=== PATIENT | female | born 1960 | race Caucasian/White ===

== ENCOUNTER 2019-07-02 08:25 | Emergency (ER) | payer OTHER ==
[~2019-07-02] VITALS: Ht 165.1 cm; Wt 78.0 kg
[2019-07-02 08:29] VITALS: BP 145/78
--- NOTE | 2019-07-02 08:43 | NUR ---
PATIENT IS HERE FOR MED REFILL ON [facility] AND HAS BEEN UNABLE TO GET REFILL DUE TO HER PRIMARY CARE DOCTOR LEAVING THE AREA. PATIENT HAS BEEN ON THIS MED FOR ALMOST 10 YEARS FOR DEPRESSION. LIST OF LOCAL PRIMARY CARE DOCTORS GIVEN TO ASSIST PATIENT IN QUEST TO OBTAIN NEW PRIMARY CARE PROVIDER.
[2019-07-02] MEDS ORDERED: DULO-31 PO (09:01)
== END 2019-07-02 09:15 | disposition home or self-care (01) ==
LOC: ER 08:28
DX: F32.9 Major depressive disorder, single episode, unspecified (principal); F41.9 Anxiety disorder, unspecified; Z76.0 Encounter for issue of repeat prescription
CPT/HCPCS: 99283

== ENCOUNTER 2025-07-26 07:34 | Emergency (ER) | payer MEDICARE, MEDICAID ==
[~2025-07-26] VITALS: Ht 165.1 cm; Wt 73.4 kg
[~2025-07-26 07:34] MED LIST: DULO-31 PO
[2025-07-26 08:28] LABS: LEUKOCYTE ESTERASE ,URINE NEGATIVE (Neg); NITRITES, URINE NEGATIVE (Neg); OCCULT BLOOD,URINE NEGATIVE (Neg)
[2025-07-26 08:29] LABS: UA COLLECTION TYPE CLN CATCH MIDSTREAM; URINE HCG NEGATIVE (NEG)
[2025-07-26 08:37] LABS: SQUAMOUS EPITHELIAL CELL,UR MANY /LPF (FEW)
[2025-07-26 08:38] LABS: HYALINE CASTS 0-3 /LPF (NEGATIVE)
[2025-07-26 08:45] VITALS: BP 157/85; PULSE 70; RESP 16; TEMP 98.1; O2SAT 98
[2025-07-26 08:46] LABS: MEAN PLATELET VOLUME 6.6 FL (7.4-10.4); RED CELL DISTRIBUTION WIDTH 13.4 % (11.5-14.5)
[2025-07-26 08:57] LABS: CREATININE 0.95 MG/DL (0.40-0.90); TOTAL CARBON DIOXIDE 25.7 MMOL/L (24-32); eCRCL 53 ML/MIN; eGFR 59 ML/MIN
[2025-07-26] MEDS ORDERED: TINI500T18 PO (10:59)
--- NOTE | 2025-07-26 10:59 | Physician Documentation ---
History of Present Illness ~ Chief Complaint: Diarrhea Stated Complaint: DIARRHEA Time Seen by MD: 07:48 Primary Medical Doctor: [facility] Isamar aquino Mode of Arrival: Ambulatory HPI 64 year old female reports 7 weeks of watery diarrhea with gas. She has passed very little solid stool and her appetite has been decreased during this time. She reports some occasional abdominal cramping but denies focal abdominal pain. Denies fevers, recent travel, new medications, antibiotic use, and exposure to other sick individuals. Medication Reconciliation Allergies: Coded Allergies: No Known Allergies (Unverified , 07/26/25) Scheduled Duloxetine Hcl* (Cymbalta*), 60 MG PO DAILY Past Medical History Smoking Status: Current every day smoker Review of Systems All Other Systems at this time: Reviewed and Negative Physical Exam Vital Signs: RN Vital Signs have been reviewed: Yes, Temperature: 98.1, Source: Oral, Heart Rate: 70, Respiratory Rate: 16, BP: 157/85, Pulse Oximetry: 98, Weight: 73.400 Oxygen Flow Rate: 0 Physical Exam Gen: no distress HEENT: PERRL, EOMI Pulm: no distress CV: deferred Abd: soft, nontender, nondistended MSK: no deformity Skin: w/d/i Psych: unremarkable Progress Results/Orders Results/Orders Orders - LUISANA ROGERS MD C Diff Toxin (07/26/25 08:48) Completed Orders - LUISANA ROGERS MD Hcg, Ur Ql (07/26/25 07:41) Cbc/Diff (07/26/25 07:41) BMP (07/26/25 07:41) Lipase (07/26/25 07:41) CMP (07/26/25 07:41) Ua W/Microscopic, Cult If Ind (07/26/25 07:45) Vital Signs 07/26/25 07/26/25 07/26/25 07:37 08:37 08:45 Temp 97.9 98.1 Pulse 112 70 Resp 16 18 16 B/P (MAP) 151/82 157/85 (109) Pulse Ox 99 98 O2 Flow Rate 0 0 Laboratory Tests Test 07/26/25 07:45 07/26/25 08:34 Urine Specimen Description Cln catch midstream Urine Color Yellow Urine Clarity Slightly cloudy Urine pH 6.0 Urine Specific [place] 1.015 Urine Protein Negative Urine Glucose (UA) Negative Urine Ketones Trace H Urine Occult Blood Negative Urine Nitrite Negative Urine Bilirubin Negative Urine Urobilinogen 0.2 Urine Leukocyte Esterase Negative Urine RBC None seen Urine WBC 0-4 Urine Squamous Epithelial Cells Many Urine Bacteria Few Urine Hyaline Casts 0-3 Urine Culture Indicated Not ind Volume Urine Centrifuged 10 ml Urine HCG, Qualitative Negative Urine Comment White Blood Count 8.3 Red Blood Count 3.79 L Hemoglobin 13.1 Hematocrit 38.0 Mean Corpuscular Volume 100.3 H Mean Corpuscular Hemoglobin 34.5 H Mean Corpuscular Hemoglobin Concent 34.4 Red Cell Distribution Width 13.4 Platelet Count 468 H Mean Platelet Volume 6.6 L Neutrophils (%) (Auto) 74.5 Lymphocytes (%) (Auto) 16.9 L Monocytes (%) (Auto) 5.2 Eosinophils (%) (Auto) 2.7 Basophils (%) (Auto) 0.7 Neutrophils # (Auto) 6.2 Lymphocytes # (Auto) 1.4 Monocytes # (Auto) 0.4 Eosinophils # (Auto) 0.2 Basophils # (Auto) 0.1 CBC Comment Sodium Level 133 L Potassium Level 4.6 Chloride Level 100 Carbon Dioxide Level 25.7 Anion Gap 7 L Blood Urea Nitrogen 8 Creatinine 0.95 H Estimated GFR/1.73 m2 59 BUN/Creatinine Ratio 8.4 L Glucose Level 133 H Calcium Level 8.8 Total Bilirubin 0.8 Aspartate Amino Transf (AST/SGOT) 32 Alanine Aminotransferase (ALT/SGPT) 29 Alkaline Phosphatase 69 Total Protein 7.4 Albumin 3.8 Globulin 3.6 Albumin/Globulin Ratio 1.1 Lipase 40 Chemistry Comments Medical Decision Making Additional information obtaine: N/A Diff Dx GI Bleed:Consideration: Include: Other Diff Dx Pain:Considerations: Include: Other Diff Dx N/V/D:Considerations: Include: Other Diff Dx Rectal:Considerations: Include: Other Additional Comments 64 year old female with subacute diarrhea. Exam and vitals benign, workup nega tive thus far although we are awaiting stool results for giardia and c. diff. Will discharge with empiric dose of tinidazole. Ddx = giardia, viral gastroenteritis, malabsorption, c. diff. Departure Disposition: 01 HOME / SELF CARE / HOMELESS Impression: Primary Impression: Diarrhea Condition: Stable Discharge Instructions: Diarrhea, Adult Referrals: NO PRIMARY CARE PROVIDER (PCP) Prescriptions Tinidazole (Tinidazole) 500 Mg Tablet 4 TAB PO ONCE for 1 Day, #4 TAB 0 Refills Prov: LUISANA ROGERS MD 07/26/25 Education Educated: Patient Educated regarding: diagnosis, treatment, prognosis, need for follow up Signature Scribe Signature: . Attestation: . LUISANA ROGERS MD Jul 26, 2025 10:59
== END 2025-07-26 11:09 | disposition home or self-care (01) ==
LOC: ER 07:35
DX: R19.7 Diarrhea, unspecified (principal)
CPT/HCPCS: 36415; 80053; 81001; 81025; 83690; 85025; 99283